=== PATIENT | male | born 1995 | race Caucasian/White ===

== ENCOUNTER 2017-05-02 09:39 | Emergency (ER) | payer BC, OTHER ==
[~2017-05-02] VITALS: Ht 193 cm; Wt 108.9 kg
--- NOTE | 2017-05-02 09:41 | ER.PDOC ---
General Chief Complaint: Requesting Medical Care Stated Complaint: ABD PAIN Time seen by MD: 09:41 Source: patient Exam Limitations: no limitations History of Present Illness Initial Comments rectal bleeding for several months. bright red blood per rectum, on toilet paper and sometimes just blood in toilet. otherwise asymptomatic. no fever, no pain Severity/Quality: moderate Associated Symptoms: denies symptoms Exacerbated by: nothing Relieved By: nothing Allergies: Coded Allergies: No Known Allergies (Unverified , 05/02/17) Vital Signs First Vital Signs Date Time Temp Pulse Resp B/P (MAP) Pulse Ox O2 Delivery O2 Flow Rate FiO2 05/02/17 09:44 97.7 65 18 99 05/02/17 09:49 156/90 (112) Last Vital Signs Date Time Temp Pulse Resp B/P (MAP) Pulse Ox O2 Delivery O2 Flow Rate FiO2 05/02/17 11:14 65 18 99 05/02/17 11:11 97.7 156/90 (112) Past Medical History Medical History: no pertinent history Surgical History: no surgical history Family History Significant Family History: no pertinent family hx Social History Smoking: non-smoker Alcohol Use: sober Drug Use: none Reviewed Nursing Reviewed: Vital Signs, Abn. Noted, Nursing Assessment Constitutional: no symptoms reported EENTM: no symptoms reported Respiratory: no symptoms reported Cardiovascular: no symptoms reported Gastrointestinal: see HPI Genitourinary: no symptoms reported Skin: no symptoms reported Psychiatric/Neurological: no symptoms reported Endocrine: no symptoms reported Hematologic/Lymphatic: no symptoms reported Physical Exam General Appearance: No Apparent Distress, WD/WN HEENT: PERRL/EOMI, Normal ENT Inspection, TMs Normal, Pharynx Normal Neck: Non-Tender, Full Range of Motion, Supple, Normal Inspection Cardiovascular: Normal Peripheral Pulses, Regular Rate, Rhythm, No Edema, No Gallop, No JVD, No Murmur Gastrointestinal: Normal Bowel Sounds, Non Tender, Soft Rectal: Normal Rectal Tone, Heme Positive Stool, Other (no hemorrhoids palbable , normal prostate. 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, No Motor/Sensory Deficits, Alert, Normal Mood/Affect, Oriented x 3 Skin: Normal Color, Warm/Dry Lymphatic: No Adenopathy Results/Orders Results/Orders Laboratory Tests Test 05/02/17 10:01 05/02/17 10:17 Sodium Level 138 mmol/L Potassium Level 4.1 mmol/L Chloride Level 103.0 mmol/L Carbon Dioxide Level 27.8 mmol/L Anion Gap 11.3 Blood Urea Nitrogen 11 mg/dL Creatinine 1.08 mg/dL Estimated GFR () 102.5 BUN/Creatinine Ratio 10.0 Glucose Level 103 mg/dL Calcium Level 9.2 mg/dL Total Bilirubin 0.5 mg/dL Aspartate Amino Transf (AST/SGOT) 17 U/L Alanine Aminotransferase (ALT/SGPT) 30 U/L Alkaline Phosphatase 71 U/L Total Protein 7.7 g/dL Albumin 3.9 g/dL Globulin 3.8 White Blood Count 10.1 10^3/uL Red Blood Count 5.26 10^6/uL Hemoglobin 15.4 g/dL Hematocrit 44.7 % Mean Corpuscular Volume 85.0 fL Mean Corpuscular Hemoglobin 29.3 pg Mean Corpuscular Hemoglobin Concent 34.5 g/dL Red Cell Distribution Width 13.1 % Platelet Count 255 10^3/uL Mean Platelet Volume 9.7 fL Neutrophils (%) (Auto) 59.4 % Lymphocytes (%) (Auto) 24.6 % Monocytes (%) (Auto) 8.1 % Neutrophils # (Auto) 6.0 10^3/uL Lymphocytes # (Auto) 2.5 10^3/uL Monocytes # (Auto) 0.8 10^3/uL Absolute Immature Granulocyte (auto 0.03 10^3 u/L Eosinophils % 6.5 % Basophils % 1.1 % Basophils # 0.1 10^3/uL Eosinophil Count 0.7 10^3/uL Percent Immature Gran (Cell Imm) 0.30 % Departure Time of Disposition: 10:57 Disposition: 01 HOME, SELF-CARE Impression: Primary Impression: Lower GI bleed Condition: Stable Additional Instructions: 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
[2017-05-02 10:26] LABS: BASOPHIL # 0.1 10^3/uL (0.0-0.1); BASOPHIL % 1.1 % (0.0-0.2); EOSINOPHIL # 0.7 10^3/uL (0.0-0.2); EOSINOPHIL % 6.5 % (0.0-5.0); HEMATOCRIT 44.7 % (37.0-53.0); HEMOGLOBIN 15.4 g/dL (13.9-16.3); LYMPHOCYTES # 2.5 10^3/uL (1.0-4.8); LYMPHOCYTES % 24.6 % (24.0-44.0); MEAN CELL HGB 29.3 pg (26-34); MEAN CELL HGB CONCENTRATION 34.5 g/dL (33-37); MEAN PLATELET VOLUME 9.7 fL (7.8-11.0); MONOCYTES # 0.8 10^3/uL (0.3-0.8); MONOCYTES % 8.1 % (5.0-12.0); NEUTROPHILS % 59.4 % (41.0-85.0); RED CELL DISTRIBUTION WIDTH 13.1 % (11.5-14.5); WHITE BLOOD CELL 10.1 10^3/uL (4.5-11.0)
[2017-05-02 10:49] LABS: CALCIUM 9.2 mg/dL (8.4-10.5); CARBON DIOXIDE 27.8 mmol/L (20.0-32)
== END 2017-05-02 11:11 | disposition home or self-care (01) ==
LOC: ER 09:39
DX: K92.2 Gastrointestinal hemorrhage, unspecified (principal)
CPT/HCPCS: 36415; 80053; 82272; 85025; 99284